=== PATIENT | female | born 1985 | race Caucasian/White ===

== ENCOUNTER 2016-08-03 16:21 | Emergency (ER) | payer OTHER ==
--- NOTE | ~2016-08-03 | CT4 ---
[facility] A Service of [facility] / [facility] RADIOLOGY TEXT RESULTS PATIENT: MARISELA FIGUEROA LOCATION: SED : 85 UNIT #: [id number] AGE: [address]: Tin Bishop MD SEX: F ORDER DR: [id number] [place] [id number] MR#: [id number] #: [id number] NAME: MARISELA FIGUEROA : 1985 SEX: F STUDY DATE/TIME: 08/03/2016 17:34 UNIT: SED ROOM: STUDY DESCRIPTION: CT Abd and Pelv Wo Cont Attending Physician: Tin Bishop M.D. Ordering Physician: William Butterfield M.D. MEDICAL IMAGING REPORT This report is preliminary unless electronic signature is present. EXAM CT abdomen and pelvis, 08/03/2016 HISTORY Pain, swelling, discharge from bellybutton since , bloody discharge, pain and redness. This CT exam was performed with one or more of the following radiation dose reduction techniques: automatic exposure control, adjustment of mA and/or kV according to patient size, and iterative reconstruction. FINDINGS CT abdomen and pelvis performed without administration of oral or intravenous contrast. Study limited in the absence of both oral and intravenous contrast. The lung bases are clear. Inferior heart and pericardium unremarkable. Liver, gallbladder, spleen, pancreas, adrenal glands unremarkable. Mild bilateral pyelocaliectasis with no obstructing process seen. Likely normal physiologic state for this patient and possibly reflecting some degree of pyeloureteral junction stenosis. No perinephric inflammatory change. No renal calculi. The ureters are unremarkable. CT PELVIS: No inguinal adenopathy. Urinary bladder, uterus, adnexal regions normal in appearance for a patient this age. No free fluid in the pelvis. No pelvic or retroperitoneal adenopathy. Distal esophagus, stomach, small bowel, appendix, colon unremarkable. Unopacified vascular structures normal in caliber. The umbilicus shows a subcutaneous area of slight hypodensity measuring 3.4 cm x 1.7 cm x 2 cm. Adjacent skin thickening. This is felt to represent localized infectious or inflammatory process. No subcutaneous air. No intraabdominal extension. Correlate with exam. Remainder of body wall soft tissues unremarkable. No acute bony abnormality. [facility]. [facility] A Service of [facility] RADIOLOGY TEXT RESULTS PATIENT: MARISELA FIGUEROA LOCATION: SED : 85 UNIT #: [id number] AGE: [address]: Tin Bishop MD SEX: F ORDER DR: IMPRESSION 1. At level of the umbilicus, in the subcutaneous soft tissues there is relative hypodensity measuring 1.7 cm x 3.4 cm x 2 cm with some mild adjacent fat stranding and haziness and overlying skin thickening. No intraabdominal extension. This is favored to be an area of localized soft tissue inflammation or infection. No well defined abscess is seen but the study is somewhat limited in the absence of intravascular contrast. There is no subcutaneous air. Please correlate with clinical examination. Clinical followup to resolution recommended. 2. Mild bilateral pyelocaliectasis in the kidneys. No acute appearing renal abnormality. No obstructing process and no ureteral distension. Probably the normal physiologic state this patient and related to mild pyeloureteral stenosis. 3. Remainder of intraabdominal structures unremarkable. See above. Dictated by... Tin Rangel M.D. THIS IS AN ELECTRONICALLY VERIFIED REPORT Tin Rangel M.D. at 08/04/2016 8:14 AM Erum TD: 08/04/2016 01:56 JOB #: [id number] MEDICAL IMAGING REPORT Page 1 of 1
[2016-08-03] MEDS ORDERED: CELEXA20 MG (16:35)
[2016-08-03] MEDS ORDERED: DESYREL150 M1 (16:35)
[2016-08-03] MEDS ORDERED: DIFLUCAN PO (19:43)
== END 2016-08-03 19:43 | disposition home or self-care (01) ==
LOC: SED 16:21
DX: L03.311 Cellulitis of abdominal wall (principal); Z88.8 Allergy status to other drugs, medicaments and biological substances; Z79.899 Other long term (current) drug therapy
CPT/HCPCS: 74176; 84703; 87070; 87077; 87186; 87205; 87210; 99284